=== PATIENT | female | born 2005 | race Two or more races ===

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

== ENCOUNTER 2025-03-01 14:58 | Emergency (ER) | payer BC ==
[~2025-03-01] VITALS: Ht 175.3 cm; Wt 67.0 kg
[2025-03-01 15:25] VITALS: BP 111/75; PULSE 60; RESP 16; TEMP 97.4; O2SAT 98
[2025-03-01] MEDS ORDERED: ERY05OO OP (15:39)
--- NOTE | 2025-03-01 15:41 | ED.PDOC ---
History of Present Illness HPI Comments small white spot on left lateral upper lid for 1 day. no pain, no discharge. 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 History Family History Family History: Reviewed,noncontributory to illness, No family hx of Cancer, No family hx of DM, No family hx of Heart priscila, No family hx of HTN, No family hx ofKidney priscila, No family hx of Liver priscila, No family hx of Lung priscila, No family hx of Stroke Constitutional: denies: chills, diaphoresis, fatigue, fever, malaise, sweats, weakness, others EENTM: denies: blurred vision, double vision, ear bleeding, ear discharge, ear drainage, ear pain, ear ringing, eye pain, eye redness, hearing loss, mouth pain, mouth swelling, nasal discharge, nose bleeding, nose congestion, nose pain, photophobia, tearing, throat pain, throat swelling, voice changes, others Musculoskeletal: denies: back pain, gout, joint pain, joint swelling, muscle pain, muscle stiffness, neck pain, others Integumetry: reports: others (left lid papule); denies: bruises, change in color, change in hair/nails, dryness, laceration, lesions, lumps, rash, wounds Allergic/Immunocompromised: denies: Difficulty Healing, Frequent Infections, Hives, Itching, others Physical Exam General Appearance: No Apparent Distress, Normal HEENT: Normal ENT Inspection, Pharynx Normal, TMs Normal, Other (left upper lid on lateral margin is a small 2hite papule. no discharge. no redness. no swelling) Neck: Full Range of Motion, Non-Tender, Normal, Normal Inspection Respiratory: Chest Non-Tender, Lungs Clear, No Accessory Muscle Use, No Respiratory Distress, Normal Breath Sounds Cardiovascular: No Edema, No JVD, No Murmur, No Gallop, Normal Peripheral Pulses, Regular Rate/Rhythm Breast Exam: Deferred Gastrointestinal: No Organomegaly, Non Tender, No Pulsatile Mass, Normal Bowel Sounds, Soft Genitalia: Deferred Pelvic: Deferred Rectal: Deferred Extremities: No calf tenderness, Normal capillary refill, Normal inspection, Normal range of motion, Non-tender, No pedal edema Musculoskeletal : Apperance: Normal Neurologic: Alert, complaint manager II-XII nml as Tested, No Motor Deficits, Normal Affect, Normal Mood, No Sensory Deficits Cerebellar Function: Normal Reflexes: Normal Skin: Dry, Normal Color, Warm Lymphatic: No Adenopathy Was a procedure done? Was a procedure done?: No Differential Dx Considerations may include: blepharitis, chalazion, abscess, cellulitis X-Ray, Labs, Meds, VS Vital Signs Date Time Temp Pulse Resp B/P (MAP) Pulse Ox O2 Delivery O2 Flow Rate FiO2 03/01/25 15:25 97.4 60 16 111/75 (87) 98 97.4 Time of 1ST Reevaluation: 15:34 Reevaluation 1ST: Unchanged Patient Education/Counseling: Diagnosis, Treatment, Prognosis, Need For Follow Up Family Education/Counseling: No Family Present Comments pt has blepheritis, i will start her on ophthalmic antibiotic. advised to not use eye makeup until papule resolves. SEPSIS Sepsis Screen Date sepsis recognized/suspect: Mar 01, 2025 Time Sepsis recognized/suspect: 1504 Recent Procedure: No On Antibiotic Therapy: No Respiratory Rate >20: No Heart Rate >90: No Temp<36 C (96.8 F) or >38.3 C: No SBP <90 or MAP <65 mmHG: No New Acute Mental Status Change: No Is the patient on CPAP, BIPAP,: No Vital Signs Date Time Temp Pulse Resp B/P (MAP) Pulse Ox O2 Delivery O2 Flow Rate FiO2 03/01/25 15:25 97.4 60 16 111/75 (87) 98 97.4 Departure 1 Departure Time of Disposition: 15:35 Impression: Primary Impression: Angular blepharitis of left eye Disposition: 01 HOME / SELF CARE / HOMELESS Condition: Good e-Prescriptions Erythromycin (Erythromycin) 5 Mg/Gm Oin 1 MG OP Q6HR for 5 Days, #1 OIN Prov: MOSES WIGGINS MD 03/01/25 Discharged With: Self Critical Care Note Critical Care Time?: No Stability Stability form required: No MOSES WIGGINS MD Mar 01, 2025 15:41
== END 2025-03-01 15:49 | disposition home or self-care (01) ==
LOC: ER 14:58
DX: H01.01 Ulcerative blepharitis (principal)